=== PATIENT | female | born 1965 ===

== ENCOUNTER 2023-04-03 06:00 | Day surgery (SDC) | payer OTHER ==
[~2023-04-03] VITALS: Ht 177.8 cm; Wt 104.3 kg
[~2023-04-03 06:00] MED LIST: BENICAR HCT 401 EAC1 PO; HYZAAR 100-121 UDTAB; SINGULAIR10 MG PO; SYNTHROID137 MCG PO; TUSSIONEX PENNKI5 ML PO; ZOCOR5 MG
[2023-04-03] MEDS ORDERED: OXYC1TAB9 PO (11:02)
== END 2023-04-03 15:00 | disposition home or self-care (01) ==
LOC: CIR.AMB 06:00
PROVIDERS: ATTEND Surgery
DX: K62.5 Hemorrhage of anus and rectum (principal); K64.4 Residual hemorrhoidal skin tags; K64.8 Other hemorrhoids; Z20.822 Contact with and (suspected) exposure to COVID-19